=== PATIENT | female | born 1990 | race Two or more races ===

== ENCOUNTER 2016-10-27 18:59 | Emergency (ER) | payer MEDICAID ==
[~2016-10-27] VITALS: Ht 160 cm; Wt 65.3 kg
[~2016-10-27 18:59] MED LIST: CALC667C PO; PREN-129 OR
[2016-10-27 19:32] LABS: Urine Bilirubin Negative (Negative); Urine Blood Negative /uL (Negative); Urine Color Yellow (Yellow); Urine Glucose Normal (Normal); Urine Ketone Negative (Negative); Urine Nitrite Negative (Negative); Urine RBC <1 /hpf (0 - 4); Urine Squamous Epithelial Cell FEW /hpf (<5); Urine Urobilinogen Normal (Negative)
[2016-10-27 19:41] LABS: Basophils # (auto) 0.1 uL; Basophils % (auto) 0.7 % (0.0-2.0); CONDITION Y; Eosinophils # (auto) 0 uL; Eosinophils % (auto) 0.5 % (0.0-7.0); Hematocrit 37.2 % (36.0-46.0); Hemoglobin 12.4 g/dL (12.2-16.2); Lymphocytes # (auto) 3.4 uL; Lymphocytes % (auto) 36.4 % (10.0-50.0); Mean Corpuscular Hgb Conc. 33.3 g/dL (32.0-36.0); Mean Corpuscular Volume 84.1 fL (80.0-100.0); Mean Platelet Volume 8.4 fL (7.4-10.4); Monocytes # (auto) 0.4 uL; Monocytes % (auto) 3.9 % (0.0-12.0); Neutrophils # (auto) 5.4 uL; Neutrophils % (auto) 58.5 % (37.0-80.0); Platelet Count (auto) 406 10^3/uL (140-450); Red Cell Distribution Width 14.2 % (11.6-16.0); White Blood Cell 9.3 10^3/uL (4.4-10.8)
[2016-10-27 20:05] LABS: Albumin 3.8 g/dL (3.4-5.0); BUN/Creatinine Ratio 33.3; Calcium 8.6 mg/dL (8.5-10.1); Potassium 3.8 mmol/L (3.5-5.1)
[2016-10-27 20:08] LABS: Bilirubin, Total 0.9 mg/dL (0.2-1.0); Total Protein 7.4 g/dL (6.4-8.2)
[2016-10-27] MEDS ORDERED: ONDANSETRON HCL 4 MG/2 ML VIAL IV ONE (21:30)
[2016-10-27] MEDS ORDERED: MORPHINE SULFATE 4 MG/ML SYRG IV ONE (21:30)
[2016-10-28 00:01] VITALS: BP 91/47
== END 2016-10-28 00:14 | disposition home or self-care (01) ==
LOC: ER 19:02
DX: R10.32 Left lower quadrant pain (principal); R10.31 Right lower quadrant pain; Z88.0 Allergy status to penicillin; Z90.49 Acquired absence of other specified parts of digestive tract
CPT/HCPCS: 36415; 74176; 80053; 81001; 82150; 83690; 84702; 85025; 94761; 96374; 96375; 99285; J2270; J2405

== ENCOUNTER 2017-09-10 09:15 | Inpatient (IN) | payer MEDICAID ==
[~2017-09-10] VITALS: Ht 160 cm; Wt 80.3 kg
[2017-09-10] MEDS ORDERED: LACT. RINGERS/OXYTOCIN 20UNITS 1,000 ML IV SCH (09:46)
[2017-09-10] MEDS ORDERED: NALBUPHINE HCL 10 MG/1ml INJECTION IV PRN (10:00)
[2017-09-10] MEDS ORDERED: DERMOPLAST 60ML BOTTLE TOP PRN (10:00)
[2017-09-10] MEDS: LACTATED RINGER'S 1,000 ML IV SCH ×2 (10:00→17:12)
[2017-09-10] MEDS ORDERED: PHISODERM TOP SOLN 240ML BTL TOP PRN (10:00)
[2017-09-10] MEDS ORDERED: LIDOCAINE 2% (LOCAL ANESTH.) PF 5ml SDV ID PRN (10:00)
[2017-09-10] MEDS ORDERED: WITCH HAZEL-GLYCERIN PAD TOP PRN (10:00)
[2017-09-10] MEDS ORDERED: FERR1TAB36 PO (10:38)
[2017-09-10 10:40] LABS: Basophils # (auto) 0 uL; Hemoglobin 11.7 g/dL (12.2-16.2); Lymphocytes # (auto) 1.9 uL; Mean Corpuscular Hgb Conc. 32.4 g/dL (32.0-36.0); Monocytes # (auto) 0.4 uL; Neutrophils # (auto) 3.6 uL
[2017-09-10 10:42] LABS: Basophils % (auto) 0.4 % (0.0-2.0); Eosinophils # (auto) 0 uL; Eosinophils % (auto) 0.8 % (0.0-7.0); Hematocrit 36.2 % (36.0-46.0); Lymphocytes % (auto) 32.5 % (10.0-50.0); Mean Corpuscular Hemoglobin 26.4 pg (28.0-32.0); Mean Corpuscular Volume 81.6 fL (80.0-100.0); Monocytes % (auto) 6.4 % (0.0-12.0); Neutrophils % (auto) 59.9 % (37.0-80.0); Platelet Count (auto) 325 10^3/uL (140-450); Red Blood Cells 4.44 10^6/uL (4.0-5.20); Red Cell Distribution Width 22.6 % (11.8-14.3)
[2017-09-10 10:52] LABS: INR 0.88 (0.9-1.15); Partial Thromboplastin Time 28.2 sec (22.64-33.71); Prothrombin Time 9.6 sec (9.37-12.3)
[2017-09-10 10:55] LABS: Urine Bacteria MOD /hpf (None Seen); Urine Blood Negative /uL (Negative); Urine Specific Gravity 1.006 (1.001-1.035); Urine WBC 8 /hpf (0 - 5)
[2017-09-10 11:02] LABS: Albumin 2.7 g/dL (3.4-5.0); BUN/Creatinine Ratio 11.9; Bilirubin, Total 0.7 mg/dL (0.2-1.0); Calcium 8.6 mg/dL (8.5-10.1); Potassium 3.6 mmol/L (3.5-5.1); Total Protein 6.5 g/dL (6.4-8.2)
[2017-09-10] MEDS ORDERED: METHYLERGONOVINE MALEATE 0.2 MG/ML AMP IM ONE (18:21)
[2017-09-10] MEDS ORDERED: PHISODERM TOP SOLN 240ML BTL TOP ONE (18:21)
[2017-09-10] MEDS ORDERED: LIDOCAINE 2% (LOCAL ANESTH.) PF 5ml SDV ONE (18:52)
[2017-09-10] MEDS ORDERED: NALOXONE HCL 0.4 MG/ML VIAL IV ONE (21:30)
[2017-09-10] MEDS ORDERED: ePHEDrine SULFATE 50 MG/ML AMP IV ONE (21:30)
[2017-09-10] MEDS ORDERED: LIDOCAINE HCL 2 %PF INJ 10ML AMP IJ ONE (21:30)
[2017-09-10] MEDS ORDERED: fentaNYL W ROPIVACAINE 150 ML EPI SCH (21:30)
[2017-09-11] MEDS ORDERED: ONDANSETRON HCL 4 MG/2 ML VIAL ONE (01:30)
[2017-09-11] MEDS ORDERED: ONDANSETRON HCL 4 MG/2 ML VIAL IV ONE (01:30)
[2017-09-11] MEDS: LACTATED RINGER'S 1,000 ML IV SCH (01:46)
[2017-09-11] MEDS ORDERED: OXYTOCIN 10UNIT/ML 1ML VIAL ONE (03:05)
[2017-09-11] MEDS ORDERED: LACT. RINGERS/OXYTOCIN 20UNITS 500 ML IV ONE (03:50)
[2017-09-11] MEDS ORDERED: IBUPROFEN 600 MG TAB PO ONE (03:54)
[2017-09-11] MEDS: IBUPROFEN 600 MG TAB PO PRN ×3 (03:55→16:59)
[2017-09-11] MEDS ORDERED: ACETAMINOPHEN 325 MG TAB PO PRN (04:00)
[2017-09-11] MEDS ORDERED: RHO (D) IMMUNE GLOBULIN 300 MCG INJ IM ONE (06:15)
[2017-09-11 06:44] VITALS: BP 115/78
[2017-09-11] MEDS ORDERED: TETANUS-DIPTH-ACEL PERTUSSIS 0.5ML SYRG IM ONE (07:15)
[2017-09-11 11:30] VITALS: BP 109/75
[2017-09-11 15:00] VITALS: BP 104/55
[2017-09-11 19:00] VITALS: BP 100/55
[2017-09-11 22:20] VITALS: BP 100/55
[2017-09-12 04:13] VITALS: BP 89/42
[2017-09-12] MEDS: IBUPROFEN 600 MG TAB PO PRN (06:55)
[2017-09-12 07:00] VITALS: BP 88/42
[2017-09-12 11:30] VITALS: BP 96/53
== END 2017-09-12 15:15 | disposition home or self-care (01) | DRG 560 ==
LOC: LDRP 09:15
PROVIDERS: ADMIT Specialist; ATTEND Specialist
PROC: 10E0XZZ Delivery of Products of Conception, External Approach (ICD-10-PCS; principal; 2017-09-10)
PROC: 10907ZC Drainage of Amniotic Fluid, Therapeutic from Products of Conception, Via Natural or Artificial Opening (ICD-10-PCS; 2017-09-10)
PROC: 3E0P7VZ Introduction of Hormone into Female Reproductive, Via Natural or Artificial Opening (ICD-10-PCS; 2017-09-10)
PROC: 3E0R3BZ Introduction of Anesthetic Agent into Spinal Canal, Percutaneous Approach (ICD-10-PCS; 2017-09-10)
PROC: 00HU33Z Insertion of Infusion Device into Spinal Canal, Percutaneous Approach (ICD-10-PCS; 2017-09-10)
PROC: 3E0234Z Introduction of Serum, Toxoid and Vaccine into Muscle, Percutaneous Approach (ICD-10-PCS; 2017-09-10)
DX: O48.0 Post-term pregnancy (principal); O36.0930 Maternal care for other rhesus isoimmunization, third trimester, not applicable or unspecified; Z37.0 Single live birth; O36.63X0 Maternal care for excessive fetal growth, third trimester, not applicable or unspecified; Z23 Encounter for immunization; Z3A.40 40 weeks gestation of pregnancy; Z88.0 Allergy status to penicillin
CPT/HCPCS: 36415; 51702; 59025; 59409; 62282; 80053; 81001; 81002; 85025; 85610; 85730; 86850; 86900; 86901; 90384; 90715; 94760; 96361; 96366; 96372; J2405; J2590; J3010

== ENCOUNTER 2019-01-14 20:13 | Emergency (ER) | payer MEDICAID ==
[~2019-01-14] VITALS: Ht 160 cm; Wt 79.4 kg
[~2019-01-14 20:13] MED LIST changes: +FERR1TAB36 PO
[2019-01-14 20:35] VITALS: BP 129/65
[2019-01-14 21:14] LABS: Urine Amorphous Crystal FEW /hpf (None Seen); Urine Bacteria FEW /hpf (None Seen); Urine Blood Negative /uL (Negative); Urine Specific Gravity 1.011 (1.001-1.035); Urine WBC 26 /hpf (0 - 5)
[2019-01-15 01:52] LABS: Basophils # (auto) 0.1 uL; Basophils % (auto) 1.1 % (0.0-2.0); Eosinophils # (auto) 0.1 uL; Eosinophils % (auto) 0.8 % (0.0-7.0); Hematocrit 34.7 % (36.0-46.0); Hemoglobin 11.6 g/dL (12.2-16.2); Lymphocytes # (auto) 3.1 uL; Lymphocytes % (auto) 35.4 % (10.0-50.0); Mean Corpuscular Hgb Conc. 33.3 g/dL (32.0-36.0); Mean Corpuscular Volume 84.1 fL (80.0-100.0); Monocytes # (auto) 0.5 uL; Monocytes % (auto) 5.4 % (0.0-12.0); Neutrophils % (auto) 57.3 % (37.0-80.0); Nucleated Red Blood Cells % 0.1 %; Platelet Count (auto) 436 10^3/uL (140-450); Red Blood Cells 4.13 10^6/uL (4.0-5.20); Red Cell Distribution Width 15.2 % (11.8-14.3); White Blood Cell 8.7 10^3/uL (4.4-10.8)
[2019-01-15 02:06] LABS: Albumin 3.1 g/dL (3.4-5.0); BUN/Creatinine Ratio 14.6; Calcium 8.8 mg/dL (8.5-10.1); Potassium 3.5 mmol/L (3.5-5.1)
[2019-01-15 02:14] LABS: Bilirubin, Total 0.6 mg/dL (0.2-1.0); Total Protein 7.1 g/dL (6.4-8.2)
== END 2019-01-15 02:15 | disposition left against medical advice (07) ==
LOC: ER 20:17
DX: O26.892 Other specified pregnancy related conditions, second trimester (principal); M54.6 Pain in thoracic spine; Z3A.26 26 weeks gestation of pregnancy; Z53.21 Procedure and treatment not carried out due to patient leaving prior to being seen by health care provider
CPT/HCPCS: 36415; 80053; 81001; 84702; 85025

== ENCOUNTER 2019-04-18 10:22 | Observation (INO) | payer MEDICAID | END 2019-04-18 12:05 | disposition home or self-care (01) | DRG 566 | LOC: LDRP 10:22 | PROVIDERS: ADMIT Obstetrics & Gynecology; ATTEND Obstetrics & Gynecology | DX: O48.0 Post-term pregnancy (principal); Z3A.40 40 weeks gestation of pregnancy | CPT/HCPCS: 59025; 76818; 81002; G0378 ==

== ENCOUNTER 2019-04-20 11:25 | Observation (INO) | payer MEDICAID ==
[~2019-04-20] VITALS: Ht 160 cm; Wt 83.0 kg
[~2019-04-20 11:25] MED LIST changes: -CALC667C PO; -FERR1TAB36 PO
== END 2019-04-20 13:10 | disposition home or self-care (01) | DRG 566 ==
LOC: LDRP 11:25
PROVIDERS: ADMIT Obstetrics & Gynecology; ATTEND Obstetrics & Gynecology
DX: O48.0 Post-term pregnancy (principal); Z3A.40 40 weeks gestation of pregnancy
CPT/HCPCS: 59025; 81002; G0378

== ENCOUNTER 2019-04-21 09:43 | Observation (INO) | payer MEDICAID | END 2019-04-21 11:10 | disposition home or self-care (01) | DRG 566 | LOC: LDRP 09:43 | PROVIDERS: ADMIT Obstetrics & Gynecology; ATTEND Obstetrics & Gynecology | DX: O48.0 Post-term pregnancy (principal); Z3A.40 40 weeks gestation of pregnancy | CPT/HCPCS: 59025; 76818; 81002; G0378 ==

== ENCOUNTER 2019-04-23 10:12 | Observation (INO) | payer MEDICAID | END 2019-04-23 11:30 | disposition home or self-care (01) | DRG 566 | LOC: LDRP 10:12 | PROVIDERS: ADMIT Obstetrics & Gynecology; ATTEND Obstetrics & Gynecology | DX: O48.0 Post-term pregnancy (principal); Z3A.40 40 weeks gestation of pregnancy | CPT/HCPCS: 59025; 76818; 81002; G0378 ==

== ENCOUNTER 2023-12-28 09:46 | Emergency (ER) | payer MEDICAID ==
[~2023-12-28] VITALS: Ht 160 cm; Wt 77.6 kg
[2023-12-28 12:39] VITALS: BP 130/70; PULSE 62; RESP 16; TEMP 97.3; O2SAT 98
[2023-12-28] MEDS: BENZOCAINE (DENTAL) 20 % SPRAY 60ML MT ONE (13:09)
[2023-12-28] MEDS: KETOROLAC TROMETH 30 MG/ML 1ML VIAL IM ONE (13:09)
== END 2023-12-28 13:18 | disposition home or self-care (01) ==
LOC: ER 09:46
DX: K02.9 Dental caries, unspecified (principal); Z88.0 Allergy status to penicillin; Z90.49 Acquired absence of other specified parts of digestive tract
CPT/HCPCS: 96372; 99283; J1885